=== PATIENT | male | born 1935 | race Caucasian/White ===

== ENCOUNTER 2016-09-06 05:37 | Emergency (ER) | payer MEDICARE, BC ==
[2016-09-06] MEDS ORDERED: IPRATROPIUM/ALBUTEROL 0.5-2.5 MG/3 ML AMPUL NEB ONE (06:35)
[2016-09-06] MEDS ORDERED: PREDNISONE 20 MG TABLET PO ONE (06:35)
[2016-09-06] MEDS ORDERED: ALBUTEROL SULFATE 0.083% NEB 2.5 MG/3 ML AMPUL NEB SCH (06:50)
--- NOTE | 2016-09-06 06:58 | ER Document Report ---
ED Respiratory Problem - General Mode of Arrival: Ambulatory Information source: Patient, Relative TRAVEL OUTSIDE OF THE [place] IN LAST 30 DAYS: No - HPI Patient complains to provider of: Cough Onset: Other - 4 days Associated symptoms: Other - See above <VINOD ESCUDERO - Last Filed: 09/06/16 07:20> <HARRIS DUMONT - Last Filed: 09/06/16 09:51> - General Chief Complaint: Cough Stated Complaint: COUGH Notes: Patient is an 81 year old male, with a past medical history including CAD and diabetes, who presents to the emergency department with his daughter complaining of a cough onset 4 days ago. Per daughter patient's cough is non productive, she didn't realize he had an inhaler to use until this morning so he has not been using an inhaler at home. Patient had refused to go to his PCP for the worsening cough and so daughter brought him to the ED. (VINOD ESCUDERO) - Related Data Allergies/Adverse Reactions: No Known Allergies Allergy (Unverified 09/06/16 05:57) Past Medical History - General Information source: Patient - Social History Smoking Status: Former Smoker - 1 yr Frequency of alcohol use: Occasional Family History: Reviewed & Not Pertinent Patient has suicidal ideation: No Patient has homicidal ideation: No - Past Medical History Cardiac Medical History: Reports: Hx Coronary Artery Disease, Hx Hypertension Endocrine Medical History: Reports: Hx Diabetes Mellitus Type 2 Past Surgical History: Reports: Hx Coronary Artery Bypass Graft <VINOD ESCUDERO - Last Filed: 09/06/16 07:20> Review of Systems - Review of Systems Constitutional: No symptoms reported EENT: No symptoms reported Cardiovascular: No symptoms reported Respiratory: See HPI, Cough Gastrointestinal: No symptoms reported Genitourinary: No symptoms reported Male Genitourinary: No symptoms reported Musculoskeletal: No symptoms reported Skin: No symptoms reported Hematologic/Lymphatic: No symptoms reported Neurological/Psychological: No symptoms reported -: Yes All other systems reviewed and negative <VINOD ESCUDERO - Last Filed: 09/06/16 07:20> Physical Exam - Vital signs Interpretation: Normal - General General appearance: Appears well, Alert - HEENT Head: Normocephalic, Atraumatic Nasal: Other - mild congestion Neck: No: Carotid bruit - Respiratory Respiratory status: No respiratory distress Chest status: Nontender Breath sounds: Wheezing - Diffuse Chest palpation: Normal - Cardiovascular Rhythm: Regular Heart sounds: Normal auscultation Murmur: No - Abdominal Inspection: Normal Distension: No distension Bowel sounds: Normal Tenderness: Nontender Organomegaly: No organomegaly - Back Back: Normal, Nontender - Extremities General upper extremity: Normal inspection, Normal ROM, Normal strength General lower extremity: Normal inspection, Normal ROM, Normal strength - Neurological Neuro grossly intact: Yes Cognition: Normal Orientation: AAOx4 [place] Coma Scale Eye Opening: Spontaneous [place] Coma Scale Verbal: Oriented [place] Coma Scale Motor: Obeys Commands [place] Coma Scale Total: 15 Speech: Normal Motor strength normal: LUE, RUE, LLE, RLE - Psychological Associated symptoms: Normal affect, Normal mood - Skin Skin Temperature: Warm Skin Moisture: Dry Skin Color: Normal <VINOD ESCUDERO - Last Filed: 09/06/16 07:20> Course - Laboratory Result Diagrams: 09/06/16 07:05 09/06/16 07:05 <VINOD ESCUDERO - Last Filed: 09/06/16 07:20> - Laboratory Result Diagrams: 09/06/16 07:05 09/06/16 07:05 - EKG Interpretation by Ks EKG shows normal: Sinus rhythm, [place], Intervals, ST-T Waves. abnormal: QRS Complexes - Old inferior wall AK, borderline R-wave progression in the anterior leads Rate: Tachycardia - 105 [place]/QRS: IVCD <HARRIS DUMONT - Last Filed: 09/06/16 09:51> - Re-evaluation Re-evalutation: 09/06/16 09:45 The patient's wheezing has mostly cleared up with the breathing treatments. He continues to have a dry nonproductive cough. He does have an albuterol inhaler but is almost empty. He takes metformin 500 mg 3 times a day for his diabetes. I believe he will require prednisone to suppress airway inflammation to get his cough congestion and wheezing cleared up, I have explained to the patient and family member that this will cause his blood sugars to run higher and he will need to be drinking plenty of fluids. The daughter inquired about a Z-Adeel for him, I explained to her why antibiotics and put at this point is clearly a viral rest were infection are not a good idea and potential side effects such as C. difficile colitis for antibiotic use , bacterial resistance from inappropriate antibiotic use, and other reactions while there is no benefit to be expected. (HARRIS DUMONT) - Vital Signs Vital signs: Temp Pulse Resp BP Pulse Ox 98.4 F 94 20 121/94 H 94 09/06/16 05:47 09/06/16 05:47 09/06/16 09:13 09/06/16 05:47 09/06/16 09:13 (VINOD ESCUDERO) (HARRIS DUMONT) - Laboratory Laboratory results interpreted by me: 09/06/16 09/06/16 07:05 07:05 RBC 3.95 L Hgb 12.1 L Hct 36.7 L RDW 14.6 H Seg Neutrophils % 80.4 H Lymphocytes % 9.3 L Sodium 136.0 L Glucose 157 H Creatine Kinase 39 L (HARRIS DUMONT) Discharge <VINOD ESCUDERO - Last Filed: 09/06/16 07:20> <HARRIS DUMONT - Last Filed: 09/06/16 09:51> - Discharge Clinical Impression: Bronchitis, acute, with bronchospasm, Viral URI Condition: Stable Disposition: HOME, SELF-CARE Additional Instructions: Bronchitis with Bronchospasm (Wheezing): You have bronchitis with bronchospasm (wheezing). Sometimes people develop wheezing with a chest cold. This occurs either because of an underlying tendency toward asthma or because the virus itself irritates the bronchial tubes. This irritation causes cough, shortness of breath, and wheezing. Emergency treatment of bronchospasm may include adrenaline shots or bronchodilator aerosol. You may feel lightheaded and have a rapid pulse for an hour or two. Rest and get plenty of fluids. At home, we'll treat you with a bronchodilator inhaler. Corticosteroids may be required for some patients. Until you recover, avoid chemical fumes, dusts, pollens, and exercising in very cold or dry air. If you smoke, stop now! Most cases of bronchitis get better without antibiotics. We prescribe antibiotics when we believe bacteria are damaging your airways, or if there's high risk the bronchitis will worsen into pneumonia. Increase your fluid intake. A cool mist humidifier may make your lungs more comfortable. An expectorant (cough medicine that loosens phlegm) can help. Repeated episodes of bronchitis and bronchospasm may result in lung damage -- for example, chronic bronchitis, recurrent pneumonias, or emphysema. If you develop a fever, increased wheezing, chest pain, or severe shortness of breath, you should contact the doctor immediately. START THE PREDNISONE TOMORROW. USE THE INHALER 2 PUFFS EVERY 4 HOURS FOR WHEEZING NEEDED. DRINK PLENTY OF WATER. THE PREDNISONE WILL MAKE YOUR BLOOD SUGARS GO HIGHER. GET PLENTY OF REST. FOLLOW UP WITH A LOCAL MEDICAL DOCTOR FOR RECHECK AND ONGOING MEDICAL CARE. RETURN TO THE EMERGENCY ROOM IF ANY NEW OR WORSENING SYMPTOMS. Prescriptions: Albuterol Sulfate [Proair HFA] 1 - 2 puff IH Q4 PRN #1 inhaler PRN Reason: Prednisone [Deltasone 10 mg Tablet] 10 mg PO ASDIR PRN #15 tablet PRN Reason: Scribe Attestation: 09/06/16 09:51 I personally performed the services described in the documentation, reviewed and edited the documentation which was dictated to the scribe in my presence, and it accurately records my words and actions. (HARRIS DUMONT) Scribe Documentation - Scribe Written by John:: john Hedrick, 09/06/16, 0720 acting as scribe for :: Cayden <VINOD ESCUDERO - Last Filed: 09/06/16 07:20>
[2016-09-06 07:25] LABS: ABSOLUTE EOSINOPHILS # (AUTO) 0.1 10^3/uL (0.0-0.6); ABSOLUTE LYMPHOCYTES (AUTO) 0.8 10^3/uL (0.5-4.7); ABSOLUTE MONOCYTES (AUTO) 0.7 10^3/uL (0.1-1.4); ABSOLUTE NEUT (AUTO) 6.5 10^3/uL (1.7-8.2); BASOPHILS % (AUTO) 0.5 % (0-2); EOSINOPHILS % (AUTO) 1.4 % (0-6); HEMATOCRIT 36.7 % (37.9-51.0); HEMOGLOBIN 12.1 g/dL (13.5-17.0); HGB HCT DIFFERENCE -0.4; LYMPHOCYTES % (AUTO) 9.3 % (13-45); MEAN CORPUSCULAR HEMOGLOBIN 30.6 pg (27.0-33.4); MEAN CORPUSCULAR VOLUME 93 fl (80-97); MONOCYTES % (AUTO) 8.4 % (3-13); RED BLOOD COUNT 3.95 10^6/uL (4.35-5.55); RED CELL DISTRIBUTION WIDTH 14.6 % (11.5-14.0); SEGMENTED NEUTROPHILS % (AUTO) 80.4 % (42-78); WHITE BLOOD COUNT 8.1 10^3/uL (4.0-10.5)
[2016-09-06] MEDS ORDERED: ALBUTEROL SULFATE 0.083% NEB 2.5 MG/3 ML AMPUL NEB ONE ×2 (07:34→08:32)
[2016-09-06 07:49] LABS: ALANINE AMINOTRANSFERASE 21 U/L (21-72); ALBUMIN 3.6 g/dL (3.5-5.0); ALKALINE PHOSPHATASE 123 U/L (38-126); ANION GAP 12 (5-19); ASPARTATE AMINO TRANSFERASE 21 U/L (17-59); BILIRUBIN,TOTAL 0.8 mg/dL (0.2-1.3); BLOOD UREA NITROGEN 12 mg/dL (7-20); CARBON DIOXIDE 24 mmol/L (22-30); CHLORIDE 100 mmol/L (98-107); CREATINE KINASE 39 U/L (55-170); CREATININE RESULT 0.94 mg/dL (0.52-1.25); GLUCOSE 157 mg/dL (75-110); POTASSIUM 4.5 mmol/L (3.6-5.0); TOTAL PROTEIN 6.3 g/dL (6.3-8.2)
[2016-09-06 08:01] LABS: CREATINE KINASE MB 0.43 ng/mL (<4.55); TROPONIN I < 0.012 ng/mL
[2016-09-06 09:52] LABS: APPEARANCE,URINE CLEAR; BILIRUBIN,URINE NEGATIVE (NEGATIVE); GLUCOSE, URINE NEGATIVE (NEGATIVE); KETONES,URINE TRACE mg/dL (NEGATIVE); LEUKOCYTE ESTERASE,URINE NEGATIVE (NEGATIVE); NITRITE,URINE NEGATIVE (NEGATIVE); PROTEIN,URINE NEGATIVE (NEGATIVE); URINE SPECIFIC GRAVITY 1.019; UROBILINOGEN,URINE NEGATIVE mg/dL (<2.0)
--- NOTE | 2016-09-06 10:04 | EKG REPORT ---
SEVERITY:- ABNORMAL ECG - SINUS TACHYCARDIA NONSPECIFIC INTRAVENTRICULAR CONDUCTION DELAY PROBABLE INFERIOR INFARCT, AGE INDETERMINATE BORDERLINE R WAVE PROGRESSION, ANTERIOR LEADS : Confirmed by: Manuel Garcia MD 06-Sep-2016 10:03:50
[2016-09-06 10:22] VITALS: BP 114/62
== END 2016-09-06 10:22 | disposition home or self-care (01) ==
LOC: ER 05:37
DX: J20.9 Acute bronchitis, unspecified (principal); J06.9 Acute upper respiratory infection, unspecified; B97.89 Other viral agents as the cause of diseases classified elsewhere; R09.81 Nasal congestion; R05 Cough; R06.2 Wheezing; R00.0 Tachycardia, unspecified; I25.10 Atherosclerotic heart disease of native coronary artery without angina pectoris; E11.9 Type 2 diabetes mellitus without complications; I25.2 Old myocardial infarction; I10 Essential (primary) hypertension; Z95.1 Presence of aortocoronary bypass graft; Z87.891 Personal history of nicotine dependence; Z79.84 Long term (current) use of oral hypoglycemic drugs
CPT/HCPCS: 93005; 94640 ×2; 99284; 36415; 82553; 82550; 85025; 80053; 81001; 84484; 83880; 71020; 93010; A9270 ×3; J7512; J7620

== ENCOUNTER 2017-10-24 20:58 | Observation (INO) | payer BC, MEDICARE, OTHER ==
[2017-10-24 21:21] LABS: ABSOLUTE EOSINOPHILS # (AUTO) 0.4 10^3/uL (0.0-0.6); ABSOLUTE LYMPHOCYTES (AUTO) 1.4 10^3/uL (0.5-4.7); ABSOLUTE MONOCYTES (AUTO) 0.6 10^3/uL (0.1-1.4); ABSOLUTE NEUT (AUTO) 4.8 10^3/uL (1.7-8.2); BASOPHILS % (AUTO) 0.6 % (0-2); EOSINOPHILS % (AUTO) 5.6 % (0-6); HEMOGLOBIN 12.9 g/dL (13.5-17.0); LYMPHOCYTES % (AUTO) 20.1 % (13-45); MEAN CORPUSCULAR HEMOGLOBIN 30.2 pg (27.0-33.4); MEAN CORPUSCULAR VOLUME 92 fl (80-97); MONOCYTES % (AUTO) 7.8 % (3-13); PLATELET COUNT 270 10^3/uL (150-450); RED BLOOD COUNT 4.26 10^6/uL (4.35-5.55); RED CELL DISTRIBUTION WIDTH 14.4 % (11.5-14.0); SEGMENTED NEUTROPHILS % (AUTO) 65.9 % (42-78); TOTAL CELLS COUNTED % (AUTO) 100 %; WHITE BLOOD COUNT 7.2 10^3/uL (4.0-10.5)
--- NOTE | 2017-10-24 21:24 | RADIOLOGY REPORT (SQ) ---
EXAM DESCRIPTION: CT HEAD WITHOUT COMPLETED DATE/TIME: 10/24/2017 9:04 pm REASON FOR STUDY: strokes/s COMPARISON: None. TECHNIQUE: Axial images acquired through the brain without intravenous contrast. Images reviewed wi th bone, brain and subdural windows. Images stored on PACS. All CT scanners at this facility use dose modulation, iterative reconstruction, and/or weight based d osing when appropriate to reduce radiation dose to as low as reasonably achievable (ALARA). [facility]: Dose Right [facility]: CareDose [facility]: Dose Right [facility]: Teradose 4D [facility]: [employer] RADIATION DOSE: CT Rad equipment meets quality standard of care and radiation dose reduction techniq ues were employed. CTDIvol: 64.6 mGy. DLP: 1292 mGy-cm. mGy. LIMITATIONS: None. FINDINGS: VENTRICLES: Normal size and contour. CEREBRUM: No masses. No hemorrhage. No midline shift. No evidence for acute infarction. Normal gra y/white matter differentiation. No areas of low density in the white matter. CEREBELLUM: No masses. No hemorrhage. No alteration of density. No evidence for acute infarction. EXTRAAXIAL SPACES: No fluid collections. No masses. ORBITS AND GLOBE: No intra- or extraconal masses. Normal contour of globe without masses. CALVARIUM: No fracture. PARANASAL SINUSES: No fluid or mucosal thickening. SOFT TISSUES: No mass or hematoma. OTHER: No other significant finding. IMPRESSION: NORMAL BRAIN CT WITHOUT CONTRAST. Pertinent positive or negative findings of the imaging study reported as a CRITICAL EXAM to ER TAMI PAYAL at21:18 on 10/24/2017. Category of Critical Exam: Stroke alert EVIDENCE OF ACUTE STROKE: NO. COMMENT: Quality ID # [id number]: Final reports with documentation of one or more dose reduction techniques (e.g., Automated exposure control, adjustment of the mA and/or kV according to patient size, use of iterative reconstruction technique) TECHNICAL DOCUMENTATION: JOB ID: [id number] [employer]- All Rights Reserved Reading location - IP/workstation name: [email or web address]
[2017-10-24 21:28] LABS: PARTIAL THROMBOPLASTIN TIME 33.8 SEC (23.5-35.8)
[2017-10-24 21:31] LABS: INTERNATIONAL RATION (INR) 0.95; PROTHROMBIN TIME 13.4 SEC (11.4-15.4)
--- NOTE | 2017-10-24 21:31 | RADIOLOGY REPORT (SQ) ---
EXAM DESCRIPTION: CHEST SINGLE VIEW COMPLETED DATE/TIME: 10/24/2017 9:09 pm REASON FOR STUDY: strokes/s COMPARISON: 09/06/2016. NUMBER OF VIEWS: One view. TECHNIQUE: Single frontal radiographic view of the chest acquired. LIMITATIONS: None. FINDINGS: LUNGS AND PLEURA: Low lung volumes. Chronic left basilar scar suspected. No new infiltra julissa. No evidence of overt failure. MEDIASTINUM AND HILAR STRUCTURES: Stable postoperative contours. Status post CABG with grossly intac t sternal wires. HEART AND VASCULAR STRUCTURES: Heart normal in size. Normal vasculature. BONES: No acute findings. HARDWARE: None in the chest. OTHER: No other significant finding. IMPRESSION: Stable chest. No acute cardiopulmonary disease appreciated. TECHNICAL DOCUMENTATION: JOB ID: [id number] [employer]- All Rights Reserved Reading location - IP/workstation name: [email or web address]
[2017-10-24] MEDS ORDERED: CLOPIDOGREL BISULFATE 300 MG TABLET PO ONE (21:32)
[2017-10-24 21:42] LABS: ALANINE AMINOTRANSFERASE 29 U/L (21-72); ALBUMIN 4.4 g/dL (3.5-5.0); ALKALINE PHOSPHATASE 88 U/L (38-126); ANION GAP 15 (5-19); ASPARTATE AMINO TRANSFERASE 26 U/L (17-59); BILIRUBIN,DIRECT 0.4 mg/dL (0.0-0.4); BILIRUBIN,TOTAL 0.5 mg/dL (0.2-1.3); BLOOD UREA NITROGEN 25 mg/dL (7-20); CALCIUM 9.7 mg/dL (8.4-10.2); CARBON DIOXIDE 26 mmol/L (22-30); CHLORIDE 102 mmol/L (98-107); CREATINE KINASE 23 U/L (55-170); GLUCOSE 73 mg/dL (75-110); POTASSIUM 4.6 mmol/L (3.6-5.0); SODIUM 142.6 mmol/L (137-145); TOTAL PROTEIN 7.3 g/dL (6.3-8.2)
--- NOTE | 2017-10-24 21:42 | ER Document Report ---
ED General - General Chief Complaint: S/S of Possible Stroke Stated Complaint: POSSIBLE STROKE Time Seen by Provider: 10/24/17 21:12 Notes: Patient is an 82-year-old male with a past medical history of non-insulin- dependent diabetes, hyperlipidemia, coronary artery disease who presents with a 30 minute episode prior to arrival of expressive aphasia as well as right-sided facial droop. The daughter at the bedside reports that when she went into the patient's bedroom to estimate he wanted dinner she noted that he was sitting up on the side of the bed. When she spoke to him she states that he replied with unintelligible, garbled speech. She states she could not make of the words that he was saying. She states she immediately went to look at his face and noticed that he had a slight right-sided facial droop. She states that he was unable to tell her his name, his location and seemed very confused but also had quite garbled speech. She states that at the time the paramedics arrived his symptoms were improving and his speech was clearing. At time of presentation patient is now asymptomatic, states he feels well, denies any complaints. He denies anything triggering his symptoms. Nothing seemed to improve or worsen the symptoms were present. He has no history of similar symptoms in the past. No history of strokes in the past. He takes aspirin daily but no additional anticoagulation or antiplatelet agents. No recent localizing infectious symptoms or head trauma. TRAVEL OUTSIDE OF THE [place] IN LAST 30 DAYS: No - Related Data Allergies/Adverse Reactions: No Known Allergies Allergy (Unverified 09/06/16 05:57) Past Medical History - General Information source: Patient, Relative - Social History Smoking Status: Never Smoker Frequency of alcohol use: None Drug Abuse: None Lives with: Family Family History: Reviewed & Not Pertinent - Past Medical History Cardiac Medical History: Reports: Hx Coronary Artery Disease, Hx Hypertension Endocrine Medical History: Reports: Hx Diabetes Mellitus Type 2 Renal/ Medical History: Denies: Hx Peritoneal Dialysis Past Surgical History: Reports: Hx Coronary Artery Bypass Graft Review of Systems - Review of Systems Notes: Constitutional: Negative for fever. HENT: Negative for sore throat. Eyes: Negative for visual changes. Cardiovascular: Negative for chest pain. Respiratory: Negative for shortness of breath. Gastrointestinal: Negative for abdominal pain, vomiting or diarrhea. Genitourinary: Negative for dysuria. Musculoskeletal: Negative for back pain. Skin: Negative for rash. Neurological: Negative for headaches, weakness or numbness. 10 point ROS negative except as marked above and in HPI. Physical Exam - Vital signs Vitals: Pulse Ox 98 10/24/17 21:16 Interpretation: Hypertensive Notes: PHYSICAL EXAMINATION: GENERAL: Well-appearing, well-nourished and in no acute distress. HEAD: Atraumatic, normocephalic. EYES: Pupils equal round and reactive to light, extraocular movements intact, sclera anicteric, conjunctiva are normal. ENT: nares patent, oropharynx clear without exudates. Moist mucous membranes. NECK: Normal range of motion, supple without lymphadenopathy LUNGS: Breath sounds clear to auscultation bilaterally and equal. No wheezes rales or rhonchi. HEART: Regular rate and rhythm without murmurs ABDOMEN: Soft, nontender, normoactive bowel sounds. No guarding, no rebound. No masses appreciated. EXTREMITIES: Normal range of motion, no pitting or edema. No cyanosis. NEUROLOGICAL: Face symmetric. Tongue protrudes midline. Extraocular motions intact. Pupils are 2 mm and equally reactive. Normal speech, normal gait. 5 out of 5 strength in both the distal and proximal upper and lower extremities bilaterally. Sensation is grossly intact throughout. Finger to nose testing normal. Pronator drift normal. PSYCH: Normal mood, normal affect. SKIN: Warm, Dry, normal turgor, no rashes or lesions noted. Course - Re-evaluation Re-evalutation: 10/24/17 21:39 Patient presents with signs and symptoms most consistent with an acute TIA that has now resolved. The patient had a right-sided facial droop as well as expressive aphasia all of which have completely resolved. Symptoms apparently lasted for approximately 30 minutes. The patient is diabetic, advanced in age and does arrive quite hypertensive. ABCD 2 score is 5 placed and the patient had a 7% risk for an acute stroke within the next 7 days. Given this elevated risk I am not comfortable with discharge nor is the patient and his family. I have discussed with Dr. Turpin who will admit this patient. I have ordered carotid Doppler studies here in the emergency department as well as loaded the patient with clopidogrel 300 mg. He does already take aspirin. Current NIH stroke scale is 0, the patient has no signs or symptoms to suggest an active stroke or indication for TPA. The remainder of his laboratories are otherwise unremarkable. - Vital Signs Vital signs: Temp Pulse Resp BP Pulse Ox 97.9 F 61 16 143/75 H 96 10/24/17 23:49 10/25/17 02:00 10/25/17 00:00 10/25/17 00:00 10/25/17 00:00 - Laboratory Result Diagrams: 10/24/17 21:13 10/24/17 21:13 Laboratory results interpreted by me: 10/24/17 10/24/17 21:13 21:13 RBC 4.26 L Hgb 12.9 L RDW 14.4 H BUN 25 H Glucose 73 L Creatine Kinase 23 L - Diagnostic Test Radiology reviewed: Image reviewed, Reports reviewed Radiology results interpreted by me: 10/24/17 21:40 CT head: No acute intracranial bleed Chest x-ray: No acute infiltrate or pneumothorax Discharge - Discharge Clinical Impression: TIA (transient ischemic attack) Qualifiers: Transient cerebral ischemia type: unspecified Qualified Code(s): G45.9 - Transient cerebral ischemic attack, unspecified Hypertension Qualifiers: Hypertension type: unspecified Qualified Code(s): I10 - Essential (primary) hypertension Diabetes Qualifiers: Diabetes mellitus type: type 2 Diabetes mellitus superintendent container terminal insulin use: without superintendent container terminal use Diabetes mellitus complication status: with unspecified complications Qualified Code(s): E11.8 - Type 2 diabetes mellitus with unspecified complications Condition: Fair Disposition: ADMITTED INPATIENT Admitting Provider: Lauryn Burnett Unit Admitted: Telemetry
--- NOTE | 2017-10-24 21:45 | EKG REPORT ---
SEVERITY:- ABNORMAL ECG - SINUS RHYTHM PROBABLE INFERIOR INFARCT, AGE INDETERMINATE ABNRM R PROG, CONSIDER ASMI OR LEAD PLACEMENT NONSPECIFIC ST-T CHANGES LATERAL CHEST LEADS : Confirmed by: Nj Naik 24-Oct-2017 21:45:11
[2017-10-24 21:54] LABS: CREATINE KINASE MB 0.68 ng/mL (<4.55)
[2017-10-24 21:55] LABS: TROPONIN I < 0.012 ng/mL
[2017-10-24] MEDS ORDERED: ONDANSETRON HCL INJ/PF 4 MG/2 ML SDV IV PRN (22:11)
[2017-10-24] MEDS ORDERED: ACETAMINOPHEN 325 MG TABLET PO PRN (22:11)
[2017-10-24] MEDS ORDERED: DOCUSATE SODIUM 100 MG CAPSULE PO PRN (22:11)
[2017-10-24] MEDS ORDERED: GLUCAGON,HUMAN RECOMB 1 MG INJ IM PRN (23:45)
[2017-10-24] MEDS ORDERED: INSULIN LISPRO 100 UNIT/ML 3 ML VIAL SUBCUT PRN (23:45)
[2017-10-24] MEDS ORDERED: DEXTROSE 40% GEL 15 GM TUBE PO PRN ×2 (23:45)
[2017-10-24] MEDS ORDERED: DEXTROSE 50%-WATER 25 GM/50 ML DISP.SYRIN IV PRN ×2 (23:45)
[2017-10-25 01:15] LABS: APPEARANCE,URINE CLEAR; BILIRUBIN,URINE NEGATIVE (NEGATIVE); COLOR,URINE YELLOW; GLUCOSE, URINE 50 mg/dL (NEGATIVE); KETONES,URINE NEGATIVE (NEGATIVE); LEUKOCYTE ESTERASE,URINE NEGATIVE (NEGATIVE); NITRITE,URINE NEGATIVE (NEGATIVE); PROTEIN,URINE NEGATIVE (NEGATIVE); URINE SPECIFIC GRAVITY 1.023; UROBILINOGEN,URINE NEGATIVE mg/dL (<2.0)
--- NOTE | 2017-10-25 02:32 | PDOC H&P ---
History of Present Illness Admission Date/PCP: 10/24/17 21:50 CATHLEEN HUSSEIN MD Patient complains of: Garbled speech and right facial droop around 8 PM per daughter. History of Present Illness: CRISTELA WOODS is a 82 year old male with with history of CAD (post CABG 3), prostate cancer (post prostatectomy and radiation therapy), hypertension, hyperlipidemia and type 2 diabetes mellitus was admitted with above-mentioned complaints. Most of the history was obtained from his daughter at bedside since the patient does not recall the event. According to his daughter, so she checked on him around 8 PM to ask him if he wanted to eat pizza. The patient was sitting at edge of the bed and seemed to have difficulty expressing himself. He also was disoriented to place and time. And she noticed a right facial droop. Up if she called 911 but by the time they got there his symptoms resolved. As she thought that it lasted about 10- 15 minutes. There was no report of any fever, chills, loss of consciousness, focal weakness or numbness, seizure activity or any postictal state. The patient apparently has been having dizzy spells for the last 4 days since his blood sugar seems to be elevated at about 400. He denied any lightheadedness or vertigo, blurred vision or dyspnea or dysphagia. He is on baby aspirin daily. Of note, the patient and the patient's daughter mentioned that he had upper airway symptoms a couple weeks ago as so if she took him to his PCP. However, since the patient also complained of feeling dizzy and his blood sugar was not controlled and the focus of the visit was more on most 2 words to controlling his blood sugar rather than starting him on any antibiotics. The patient denies any chest pain, shortness of breath but he said that he has intermittent cough with some sputum of grayish color. He denies any sick contact or any abdominal pain. He has chronic diarrhea (possibly secondary to metformin), no constipation and no urinary symptoms. He he usually walks independently but staggers sometimes. In the ED, his temperature was 98.3, heart rate 73, respiratory rate 20, blood pressure 167/68 with oxygen saturation of 9 5% on room air. His NIH SS score was 0. He had a CAT scan was done which was negative for any acute findings. He received 300 mg Plavix 1. Past Medical History Cardiac Medical History: Reports: Coronary Artery Disease - post CABG x3, Hyperlipidema, Hypertension Endocrine Medical History: Reports: Diabetes Mellitus Type 2 Malignancy Medical History: Reports: Other - Prostate cancer post prostatectomy/ XRT. Past Surgical History Past Surgical History: Reports: Coronary Artery Bypass Graft - post CABG x3, Orthopedic Surgery - Right knee surgery. Right lower extremity fracture per daughter., Other - post prostatectomy Social History Smoking Status: Former Smoker Cigarettes Packs Per Day: 0 - To smoke less than a pack a day for the last 60 years. He quit 7-8 years ago Frequency of Alcohol Use: Occasional Hx Recreational Drug Use: No - Advance Directive Resuscitation Status: Full Code Family History Family History: Reviewed & Not Pertinent Parental Family History Reviewed: Yes - Mother: CAD, 2 sisters had cancer. Brother: Prostate cancer. Children Family History Reviewed: No Sibling(s) Family History Reviewed.: Yes Medication/Allergy Home Medications: Atorvastatin Calcium 20 mg PO QAM 10/24/17 Cilostazol [Pletal 100 Mg Tablet] 100 mg PO BID 10/24/17 Losartan Potassium 25 mg PO QAM 10/24/17 Metformin HCl 500 mg PO TID 10/24/17 Allergies/Adverse Reactions: No Known Allergies Allergy (Unverified 09/06/16 05:57) Review of Systems ROS unobtainable: Other - Pertinent positives and negatives as detailed in the HPI. Physical Exam Vital Signs: Temp Pulse Resp BP Pulse Ox 98.3 F 73 20 167/68 H 99 10/24/17 21:18 10/24/17 21:18 10/24/17 21:18 10/24/17 21:18 10/24/17 21:20 General appearance: PRESENT: no acute distress, well-developed Head exam: PRESENT: atraumatic, normocephalic Eye exam: PRESENT: conjunctiva pink, PERRLA. ABSENT: scleral icterus Mouth exam: PRESENT: moist, neck supple Neck exam: PRESENT: full ROM. ABSENT: JVD Respiratory exam: PRESENT: clear to auscultation cindy. ABSENT: rales, rhonchi, wheezes Cardiovascular exam: PRESENT: RRR, +S1, +S2 Pulses: PRESENT: normal dorsalis pedis pul GI/Abdominal exam: PRESENT: normal bowel sounds, soft. ABSENT: distended, rebound, tenderness Rectal exam: PRESENT: deferred Musculoskeletal exam: PRESENT: full ROM Neurological exam: PRESENT: alert, altered, awake, oriented to person, oriented to place, oriented to time, oriented to situation, CN II-XII grossly intact - except VIII., other - No babinskin or clonus. Gait was not assessed.. ABSENT: motor sensory deficit Skin exam: PRESENT: dry, warm. ABSENT: erythema, rash Results Laboratory Results: CBC: WBC 7.2, hemoglobin 12.9, hematocrit 39.0, MCV 92, RDW 14.4, platelets 270. PT/INR 13.4/0.95. CMP: Sodium 142.6, potassium 4.6, chloride 102, bicarb 26, anion gap 15, BUN 25 , creatinine 1.02, glucose 73, liver enzymes within normal limits. Troponin 1 negative. UA: Negative. EKG Comments: Lead EKG, sinus rhythm, ventricular rate 75, [place] 0, IVCD, poor R-wave propagation. Similar when compared to previous twelve-lead EKG done on 2016. Impressions: Chest X-Ray 10/24/17 21:01 IMPRESSION: Stable chest. No acute cardiopulmonary disease appreciated. Head CT 10/24/17 21:01 IMPRESSION: NORMAL BRAIN CT WITHOUT CONTRAST. Pertinent positive or negative findings of the imaging study reported as a CRITICAL EXAM to ER PROVIDER at21:18 on 10/24/2017. Category of Critical Exam: Stroke alert EVIDENCE OF ACUTE STROKE: NO. Assessment & Plan - Diagnosis (1) TIA (transient ischemic attack) Qualifiers: Transient cerebral ischemia type: unspecified Qualified Code(s): G45.9 - Transient cerebral ischemic attack, unspecified Is this a current diagnosis for this admission?: Yes Plan: The patient's symptoms resolved prior to admission to this hospital. His NIHSS score was 0. CT scan negative for any acute findings. He received 300 mg Plavix 1 in the ED. Will order stroke workup including head MRI/MRA, neck MRA, echocardiogram, fasting lipid profile and HbA1c. We will continue ASA 325 mg daily and increase lipitor to 40 mg daily. PT consutled but no need for OT or speech therapy at this time. (2) Essential hypertension Is this a current diagnosis for this admission?: Yes Plan: Will resume his home BP medications and monitor. 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 Will check HbA1c and start Humalog sliding scale while hospitalized. Of note, the patient seems to have chronic diarrhea which could be due to metformin. (4) Hyperlipemia Is this a current diagnosis for this admission?: No Plan: Will continue Lipitor awaiting FLP. - Time Time Spent: 50 to 70 Minutes Anticipated discharge: Home
[2017-10-25] MEDS: HEPARIN SOD (PORCINE) 5,000 UNIT/ML 1 ML SYRINGE SUBCUT SCH ×3 (05:42→22:03)
[2017-10-25 07:21] LABS: HEMATOCRIT 35.3 % (37.9-51.0); HEMOGLOBIN 11.9 g/dL (13.5-17.0); MEAN CORPUSCULAR HEMOGLOBIN 30.6 pg (27.0-33.4); MEAN CORPUSCULAR HGB CONC 33.8 g/dL (32.0-36.0); MEAN CORPUSCULAR VOLUME 91 fl (80-97); PLATELET COUNT 246 10^3/uL (150-450); RED BLOOD COUNT 3.89 10^6/uL (4.35-5.55); RED CELL DISTRIBUTION WIDTH 14.3 % (11.5-14.0); WHITE BLOOD COUNT 7.3 10^3/uL (4.0-10.5)
[2017-10-25 07:35] LABS: ANION GAP 11 (5-19); BLOOD UREA NITROGEN 23 mg/dL (7-20); CALCIUM 9.4 mg/dL (8.4-10.2); CARBON DIOXIDE 23 mmol/L (22-30); CHLORIDE 103 mmol/L (98-107); CHOLESTEROL 114.88 mg/dL (0-200); GLUCOSE 119 mg/dL (75-110); POTASSIUM 4.7 mmol/L (3.6-5.0); TRIGLYCERIDES 123 mg/dL (<150)
[2017-10-25 07:46] LABS: DIRECT LDL 52 mg/dL (<100)
[2017-10-25] MEDS: FAMOTIDINE 20 MG TABLET PO SCH ×2 (10:20→22:04)
[2017-10-25] MEDS: ASPIRIN 325 MG TABLET, ENT COATED PO SCH (10:20)
[2017-10-25] MEDS: LOSARTAN POTASSIUM 25 MG TABLET PO SCH (10:20)
[2017-10-25] MEDS: CILOSTAZOL 100 MG TABLET PO SCH ×2 (10:20→18:13)
[2017-10-25] MEDS: GUAIFENESIN 600 MG TABLET.SA PO SCH ×2 (10:21→22:04)
--- NOTE | 2017-10-25 10:55 | RADIOLOGY REPORT (SQ) ---
EXAM DESCRIPTION: MRA HEAD WITHOUT COMPLETED DATE/TIME: 10/25/2017 9:20 am REASON FOR STUDY: TIA COMPARISON: None. TECHNIQUE: Axial 3-D [id number] acquisition imaging performed through the brain in the area of t he [place]. Images reformatted using 3-D MIPS. LIMITATIONS: None. FINDINGS: SOURCE IMAGES: No unexpected findings on source images. No large masses. 3-D MIP: No aneurysm. No occlusions. No significant stenosis. OTHER: No other significant finding. IMPRESSION: NORMAL MRA OF THE [place]. TECHNICAL DOCUMENTATION: JOB ID: [id number] [employer]- All Rights Reserved Reading location - IP/workstation name: [email or web address]
--- NOTE | 2017-10-25 11:03 | RADIOLOGY REPORT (SQ) ---
EXAM DESCRIPTION: MRA NECK COMBO COMPLETED DATE/TIME: 10/25/2017 9:20 am REASON FOR STUDY: TIA COMPARISON: None. TECHNIQUE: MRA of the carotid and vertebral arteries was performed using 2D and 3D [id number]-[id number]-mwtels te chniques without and with the use of gadolinium. 3-D MIPs performed at the workstation and stored on PACS. CONTRAST TYPE AND DOSE: 20 mL MultiHance RENAL FUNCTION: GFR > 60. LIMITATIONS: None. FINDINGS: GREAT VESSEL ORIGINS: Normal. No stenoses. VERTEBRAL ARTERIES: No stenoses. No evidence for aneurysm or dissection. RIGHT CAROTID SYSTEM: No significant stenosis. LEFT CAROTID SYSTEM: No significant stenosis. OTHER: No other significant finding. IMPRESSION: NORMAL MRA OF THE CAROTIDS WITH AND WITHOUT CONTRAST. COMMENT: Quality ID #[id number]: Measurements of distal internal carotid diameter were used as the denomina tor for stenosis measurement. TECHNICAL DOCUMENTATION: JOB ID: [id number] [employer]- All Rights Reserved Reading location - IP/workstation name: [email or web address]
--- NOTE | 2017-10-25 11:09 | RADIOLOGY REPORT (SQ) ---
EXAM DESCRIPTION: MRI HEAD WITHOUT COMPLETED DATE/TIME: 10/25/2017 9:20 am REASON FOR STUDY: TIA COMPARISON: Brain CT scan dated 10/24/2017 TECHNIQUE: Multiplanar imaging includes non-contrasted T1, T2, FLAIR, and diffusion with ADC map seq uences. Images stored on PACS. LIMITATIONS: None. FINDINGS: ANATOMY: No anomalies. Normal vascular flow voids. Pituitary fossa normal. CSF SPACES: Normal in size and contour. No hemorrhage. CEREBRUM: Sulci and gyri normal in size and contour. Normal white matter signal on FLAIR imaging. No evidence of hemorrhage, mass, or extraaxial fluid collection. Tiny lacunar infarct is identified in the region of the basal ganglia on the left. POSTERIOR FOSSA: No signal alteration. No hemorrhage. No edema, masses or mass effect. A small lacun ar infarct is identified in the left cerebellar hemisphere. Internal auditory canals, cerebello-pont ine angles, mastoids normal. DIFFUSION IMAGING: Negative for acute or sub-acute infarction. ORBITS: No masses. Globes normal. PARANASAL SINUSES: No fluid levels. Mucosa normal. OTHER: No other significant finding. IMPRESSION: The no acute changes. Tiny lacunar infarct is identified in the region of the basal [place] on the left and in the left cerebellar hemisphere. No other significant intracranial abnormalit ies were identified. Other findings as noted above EVIDENCE OF ACUTE STROKE: NO. TECHNICAL DOCUMENTATION: JOB ID: [id number] [employer]- All Rights Reserved Reading location - IP/workstation name: [email or web address]
--- NOTE | 2017-10-25 17:19 | PDOC PROGRESS REPORT ---
<MARIO BISHOP - Last Filed: 10/25/17 17:08> Subjective Progress Note for:: 10/25/17 Subjective:: The patient is an 82-year-old male with a past medical history of CAD, prostate cancer, hypertension, hyperlipidemia, type 2 diabetes mellitus who was admitted on 10/24/17 for TIA evaluation following a 15 minute period of garbled speech and a right facial droop that resolved spontaneously prior to EMS arrival. Since admission, he has been asymptomatic. He has seen on morning rounds with his daughter present. He is found sitting upright to the edge of the bed on room air. He denies headache, dizziness, dysphasia, aphasia, chest pain, palpitations, dyspnea and orthopnea. Per the patient's daughter, the patient is returned to his baseline. They are hopeful to be discharged home today following the echocardiogram. Reason For Visit: TIA Physical Exam Vital Signs: Temp Pulse Resp BP Pulse Ox 98.0 F 60 16 126/64 H 98 10/25/17 11:11 10/25/17 14:00 10/25/17 11:11 10/25/17 11:11 10/25/17 11:11 Intake & Output 10/24/17 10/25/17 10/26/17 06:59 06:59 06:59 Intake Total 297 400 Output Total 0 Balance 297 400 Weight 83.3 kg General appearance: PRESENT: no acute distress, well-developed, well-nourished, other - Overweight Head exam: PRESENT: atraumatic, normocephalic Eye exam: PRESENT: conjunctiva pink, EOMI, PERRLA. ABSENT: scleral icterus Ear exam: PRESENT: normal external ear exam Mouth exam: PRESENT: moist, tongue midline Neck exam: ABSENT: carotid bruit, JVD, lymphadenopathy, thyromegaly Respiratory exam: PRESENT: clear to auscultation cindy, symmetrical, unlabored. ABSENT: rales, rhonchi, wheezes Cardiovascular exam: PRESENT: RRR, +S1, +S2. ABSENT: diastolic murmur, rubs, systolic murmur Pulses: PRESENT: normal dorsalis pedis pul Vascular exam: PRESENT: normal capillary refill GI/Abdominal exam: PRESENT: normal bowel sounds, soft. ABSENT: distended, guarding, mass, organolmegaly, rebound, tenderness Rectal exam: PRESENT: deferred Extremities exam: PRESENT: full ROM. ABSENT: calf tenderness, clubbing, pedal edema Neurological exam: PRESENT: alert, awake, oriented to person, oriented to place , oriented to time, oriented to situation, CN II-XII grossly intact, other - Gait was not assessed. ABSENT: motor sensory deficit Psychiatric exam: PRESENT: appropriate affect, normal mood. ABSENT: homicidal ideation, suicidal ideation Skin exam: PRESENT: dry, intact, warm. ABSENT: cyanosis, rash Results Laboratory Results: 10/25/17 05:49 10/25/17 05:49 10/25/17 10/25/17 10/25/17 00:30 05:49 05:49 WBC 7.3 RBC 3.89 L Hgb 11.9 L Hct 35.3 L MCV 91 MCH 30.6 MCHC 33.8 RDW 14.3 H Plt Count 246 Sodium 137.0 Potassium 4.7 Chloride 103 Carbon Dioxide 23 Anion Gap 11 BUN 23 H Creatinine 0.89 Est GFR ( Amer) > 60 Est GFR (Non-Af Amer) > 60 Glucose 119 H Calcium 9.4 Triglycerides 123 Cholesterol 114.88 LDL Cholesterol Direct 52 VLDL Cholesterol 25.0 HDL Cholesterol 43 Urine Color YELLOW Urine Appearance CLEAR Urine pH 5.0 Ur Specific [place] 1.023 Urine Protein NEGATIVE Urine Glucose (UA) 50 H Urine Ketones NEGATIVE Urine Blood NEGATIVE Urine Nitrite NEGATIVE Ur Leukocyte Esterase NEGATIVE Urine WBC (Auto) 0 Urine RBC (Auto) 0 Impressions: Chest X-Ray 10/24/17 21:01 IMPRESSION: Stable chest. No acute cardiopulmonary disease appreciated. Head CT 10/24/17 21:01 IMPRESSION: NORMAL BRAIN CT WITHOUT CONTRAST. Pertinent positive or negative findings of the imaging study reported as a CRITICAL EXAM to ER PROVIDER at21:18 on 10/24/2017. Category of Critical Exam: Stroke alert EVIDENCE OF ACUTE STROKE: NO. Brain MRI with MRA 10/25/17 00:00 IMPRESSION: NORMAL MRA OF THE [place]. Head MRI 10/25/17 00:00 IMPRESSION: The no acute changes. Tiny lacunar infarct is identified in the region of the basal ganglia on the left and in the left cerebellar hemisphere. No other significant intracranial abnormalities were identified. Other findings as noted above EVIDENCE OF ACUTE STROKE: NO. Neck MRA 10/25/17 00:00 IMPRESSION: NORMAL MRA OF THE CAROTIDS WITH AND WITHOUT CONTRAST. Assessment & Plan - Diagnosis (1) TIA (transient ischemic attack) QualifierTitle: Transient cerebral ischemia type: unspecified Qualified Code(s): G45.9 - Transient cerebral ischemic attack, unspecified Is this a current diagnosis for this admission?: Yes Plan: The patient's symptoms resolved prior to EMS arrival; NIH SS score was 0. Mend scores have been 0. CT scan of the head was negative for any acute findings. MRI of the head shows an old lacunar infarct in the region of the basal ganglia on the left and in the left cerebral hemisphere; no evidence of an acute stroke. MRI of the head and neck shows normal carotids and [place] of [place]. Hemoglobin A1c is 6.4 and lipid panel is acceptable. The patient is placed on daily aspirin and Plavix therapy. Continue atorvastatin 40 mg nightly. PT consult pending. (2) Hyperlipemia Is this a current diagnosis for this admission?: Yes Plan: Continue atorvastatin 40 mg nightly. (3) Hypertension QualifierTitle: Hypertension type: unspecified Qualified Code(s): I10 - Essential (primary) hypertension Is this a current diagnosis for this admission?: Yes Plan: We will continue the patient's home medication; losartan 25 mg every morning (4) Type 2 diabetes mellitus QualifierTitle: Diabetes mellitus chcf insulin use: without terminal clerk use Diabetes mellitus complication status: without complication Qualified Code(s): E11.9 - Type 2 diabetes mellitus without complications Is this a current diagnosis for this admission?: Yes Plan: Diet controlled. The patient is placed on a consistent carb diet. Accu-Cheks before meals and at bedtime with Humalog for sliding scale coverage. - Time Time Spent with patient: 25-34 minutes Medications reviewed and adjusted accordingly: Yes Anticipated discharge: Home Within: within 24 hours <TC HATHAWAY - Last Filed: 10/25/17 17:40> Subjective Reason For Visit: TIA Physical Exam Vital Signs: Temp Pulse Resp BP Pulse Ox 98.0 F 60 16 126/64 H 98 10/25/17 11:11 10/25/17 14:00 10/25/17 11:11 10/25/17 11:11 10/25/17 11:11 Intake & Output 10/24/17 10/25/17 10/26/17 06:59 06:59 06:59 Intake Total 297 400 Output Total 0 Balance 297 400 Weight 83.3 kg Results Laboratory Results: 10/25/17 05:49 10/25/17 05:49 10/25/17 10/25/17 10/25/17 00:30 05:49 05:49 WBC 7.3 RBC 3.89 L Hgb 11.9 L Hct 35.3 L MCV 91 MCH 30.6 MCHC 33.8 RDW 14.3 H Plt Count 246 Sodium 137.0 Potassium 4.7 Chloride 103 Carbon Dioxide 23 Anion Gap 11 BUN 23 H Creatinine 0.89 Est GFR ( Amer) > 60 Est GFR (Non-Af Amer) > 60 Glucose 119 H Calcium 9.4 Triglycerides 123 Cholesterol 114.88 LDL Cholesterol Direct 52 VLDL Cholesterol 25.0 HDL Cholesterol 43 Urine Color YELLOW Urine Appearance CLEAR Urine pH 5.0 Ur Specific [place] 1.023 Urine Protein NEGATIVE Urine Glucose (UA) 50 H Urine Ketones NEGATIVE Urine Blood NEGATIVE Urine Nitrite NEGATIVE Ur Leukocyte Esterase NEGATIVE Urine WBC (Auto) 0 Urine RBC (Auto) 0 Impressions: Chest X-Ray 10/24/17 21:01 IMPRESSION: Stable chest. No acute cardiopulmonary disease appreciated. Head CT 10/24/17 21:01 IMPRESSION: NORMAL BRAIN CT WITHOUT CONTRAST. Pertinent positive or negative findings of the imaging study reported as a CRITICAL EXAM to ER PROVIDER at21:18 on 10/24/2017. Category of Critical Exam: Stroke alert EVIDENCE OF ACUTE STROKE: NO. Brain MRI with MRA 10/25/17 00:00 IMPRESSION: NORMAL MRA OF THE [place]. Head MRI 10/25/17 00:00 IMPRESSION: The no acute changes. Tiny lacunar infarct is identified in the region of the basal ganglia on the left and in the left cerebellar hemisphere. No other significant intracranial abnormalities were identified. Other findings as noted above EVIDENCE OF ACUTE STROKE: NO. Neck MRA 10/25/17 00:00 IMPRESSION: NORMAL MRA OF THE CAROTIDS WITH AND WITHOUT CONTRAST. Provider Note Provider Note: Diet is carbohydrate controlled.
[2017-10-25] MEDS ORDERED: ATORVASTATIN CALCIUM 40 MG TABLET PO SCH (22:00)
[2017-10-26] MEDS: HEPARIN SOD (PORCINE) 5,000 UNIT/ML 1 ML SYRINGE SUBCUT SCH (05:17)
[2017-10-26 05:53] LABS: ANION GAP 10 (5-19); BLOOD UREA NITROGEN 25 mg/dL (7-20); CALCIUM 9.4 mg/dL (8.4-10.2); CARBON DIOXIDE 22 mmol/L (22-30); CHLORIDE 109 mmol/L (98-107); GLUCOSE 138 mg/dL (75-110); POTASSIUM 4.4 mmol/L (3.6-5.0)
[2017-10-26 09:08] VITALS: BP 167/68
--- NOTE | 2017-10-26 09:18 | Physician Advisory Note ---
Physician Advisor ProgressNote .: Pursuant to the plan for [facility], I have reviewed the medical record for this patient. Physician Advisor Statement: Please document clinical reason(s) patient was kept a 2nd MN 3/12 PM instead of being d/c'd. Otherwise, payer will assume the patient was kept only for reasons of convenience, which they will not cover. Status: approp'ly Obs for TIA w/1MN's medical necessity clear so far. If pt had significant new clinical issue develop that required being kept longer in hospital, & it is documented, it could be possible to support Inpatient status. Call/text if ?s. Thanks! [phone]
--- NOTE | 2017-10-26 10:31 | XCELERA REPORT ---
[address] [address] Transthoracic Echocardiogram Report Name: CRISTELA WOODS Age: 82 yrs Gender: Male : 1935 Patient Status: Inpatient Patient Location: [address] [place] [address] Study Date: 10/25/2017 07:05 PM Height: 69 in Weight: 183 lb BSA: 2.0 m2 Procedure: A complete two-dimensional transthoracic echocardiogram was performed (2D, M-mode, spectral and color flow Doppler). The study was technically difficult with many images being suboptimal in quality. Reason For Study: TIA Ordering Physician: ADELA VALDEZ Performed By: Morenita Benz Interpretation Summary The left ventricular ejection fraction is within normal limits. There is borderline concentric left ventricular hypertrophy. The left ventricle is grossly normal size. Doppler measurements suggest pseudonormalized left ventricular relaxation, which is associated with grade II/IV or mild to moderate diastolic dysfunction Regional wall motion abnormalities cannot be excluded due to limited visualization. The right ventricular systolic function is normal. The left atrium is moderately dilated. The right atrium is normal in size There is a trace amount of mitral regurgitation There is no mitral valve stenosis. There is no aortic valve stenosis No aortic regurgitation is present. There is a trace or physiologic amount of tricuspid regurgitation Tricuspid regurgitation jet envelope not well defined to measure RV systolic pressure accurately. The aortic root is not well visualized. The inferior vena cava was not well visualized There is no pericardial effusion. MMode/2D Measurements & Calculations RVDd: 3.2 cm LVIDd: 4.8 cm FS: 29.9 % Ao root diam: 2.8 cm IVSd: 0.98 cm LVIDs: 3.4 cm EDV(Teich): 109.2 ml LVPWd: 1.0 cm ESV(Teich): 46.9 ml Ao root area: 6.3 cm2 EF(Teich): 57.0 % LA dimension: 4.8 cm Doppler Measurements & Calculations MV E max lenin: MV P1/2t max lenin: Ao V2 max: LV V1 max P.5 cm/sec 82.9 cm/sec 109.8 cm/sec 4.3 mmHg MV A max lenin: MV P1/2t: 68.3 msec Ao max PG: LV V1 max: 74.0 cm/sec 4.8 mmHg 104.1 cm/sec MV E/A: 1.1 MVA(P1/2t): 3.2 cm2 MV dec slope: 355.7 cm/sec2 MV dec time: 0.25 sec PA V2 max: TR max lenin: 101.7 cm/sec 238.9 cm/sec PA max PG: TR max P.8 mmHg 4.1 mmHg Left Ventricle The left ventricle is grossly normal size. There is borderline concentric left ventricular hypertrophy. The left ventricular ejection fraction is within normal limits. Doppler measurements suggest pseudonormalized left ventricular relaxation, which is associated with grade II/IV or mild to moderate diastolic dysfunction. Regional wall motion abnormalities cannot be excluded due to limited visualization. Right Ventricle The right ventricle is grossly normal size. There is normal right ventricular wall thickness. The right ventricular systolic function is normal. Atria The right atrium is normal in size. The left atrium is moderately dilated. Interarterial septum not well visualized and not well dopplered. Cannot comment on ASD/PFO presence. Mitral Valve The mitral valve is grossly normal. There is no mitral valve stenosis. There is a trace amount of mitral regurgitation. Aortic Valve The aortic valve is mildly calcified. The aortic valve is trileaflet. There is no aortic valve stenosis. No aortic regurgitation is present. Tricuspid Valve The tricuspid valve is not well visualized, but is grossly normal. There is no tricuspid stenosis. There is a trace or physiologic amount of tricuspid regurgitation. Tricuspid regurgitation jet envelope not well defined to measure RV systolic pressure accurately. Pulmonic Valve The pulmonic valve is not well visualized. Great Vessels The aortic root is not well visualized. The inferior vena cava was not well visualized. Effusions There is no pericardial effusion. : ADELA VALDEZ > Nj Naik
[2017-10-26] MEDS: ASPIRIN 325 MG TABLET, ENT COATED PO SCH (10:52)
[2017-10-26] MEDS: FAMOTIDINE 20 MG TABLET PO SCH (10:53)
[2017-10-26] MEDS: LOSARTAN POTASSIUM 25 MG TABLET PO SCH (10:53)
[2017-10-26] MEDS: CILOSTAZOL 100 MG TABLET PO SCH (10:53)
[2017-10-26] MEDS: GUAIFENESIN 600 MG TABLET.SA PO SCH (10:53)
--- NOTE | 2017-10-26 15:07 | PDOC DISCHARGE SUMMARY ---
General - Admit/Disc Date/PCP Admission Date/Primary Care Provider: 10/24/17 21:50 CATHLEEN HUSSEIN MD Discharge Date: 10/26/17 - Discharge Diagnosis (1) TIA (transient ischemic attack) Is this a current diagnosis for this admission?: Yes (2) Hyperlipemia Is this a current diagnosis for this admission?: Yes (3) Hypertension Is this a current diagnosis for this admission?: Yes (4) Type 2 diabetes mellitus Is this a current diagnosis for this admission?: Yes - Additional Information Resuscitation Status: Full Code Discharge Diet: Cardiac, Diabetic Discharge Activity: Activity As Tolerated, Balance Activity w/Rest Prescriptions: Aspirin [Ecotrin 81 mg EC Tablet] 81 mg PO DAILY #1 pkg Atorvastatin Calcium 40 mg PO QAM #30 tablet Clopidogrel Bisulfate [Plavix 75 mg Tablet] 75 mg PO DAILY #21 tablet Home Medications: Cilostazol [Pletal 100 mg Tablet] 100 mg PO BID 10/24/17 Losartan Potassium 25 mg PO QAM 10/24/17 Metformin HCl 500 mg PO TID 10/24/17 Acetaminophen [Tylenol 325 mg Tablet] 650 mg PO Q4HP PRN tablet 10/26/17 Aspirin [Ecotrin 81 mg EC Tablet] 81 mg PO DAILY #1 pkg 10/26/17 Atorvastatin Calcium 40 mg PO QAM #30 tablet 10/26/17 Clopidogrel Bisulfate [Plavix 75 mg Tablet] 75 mg PO DAILY #21 tablet 10/26/17 History of Present Illness History of Present Illness: Per H&P by Dr. Burnett: CRISTELA WOODS is a 82 year old male with with history of CAD (post CABG 3), prostate cancer (post prostatectomy and radiation therapy), hypertension, hyperlipidemia and type 2 diabetes mellitus was admitted with above-mentioned complaints. Most of the history was obtained from his daughter at bedside since the patient does not recall the event. According to his daughter, so she checked on him around 8 PM to ask him if he wanted to eat pizza. The patient was sitting at edge of the bed and seemed to have difficulty expressing himself. He also was disoriented to place and time. And she noticed a right facial droop. Up if she called 911 but by the time they got there his symptoms resolved. As she thought that it lasted about 10- 15 minutes. There was no report of any fever, chills, loss of consciousness, focal weakness or numbness, seizure activity or any postictal state. The patient apparently has been having dizzy spells for the last 4 days since his blood sugar seems to be elevated at about 400. He denied any lightheadedness or vertigo, blurred vision or dyspnea or dysphagia. He is on baby aspirin daily. Of note, the patient and the patient's daughter mentioned that he had upper airway symptoms a couple weeks ago as so if she took him to his PCP. However, since the patient also complained of feeling dizzy and his blood sugar was not controlled and the focus of the visit was more on most 2 words to controlling his blood sugar rather than starting him on any antibiotics. The patient denies any chest pain, shortness of breath but he said that he has intermittent cough with some sputum of grayish color. He denies any sick contact or any abdominal pain. He has chronic diarrhea (possibly secondary to metformin), no constipation and no urinary symptoms. He he usually walks independently but staggers sometimes. In the ED, his temperature was 98.3, heart rate 73, respiratory rate 20, blood pressure 167/68 with oxygen saturation of 9 5% on room air. His NIH SS score was 0. He had a CAT scan was done which was negative for any acute findings. He received 300 mg Plavix 1. Hospital Course Hospital Course: The patient was admitted for TIA; patient's family member reported approximately 10-15 minutes of right facial droop and incomprehensible speech that resolved spontaneously prior to EMS arrival. Evaluation included a head CT which was negative for any acute findings. 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 MRA of the head and neck showed normal carotids and [place]. Echocardiogram demonstrated a normal left ventricular ejection fraction, mild to moderate diastolic dysfunction, trace mitral regurgitation, and trace tricuspid regurgitation. A1c was evaluated at 6.4% in the lipid panel was acceptable. The patient was placed on daily aspirin, Plavix therapy, and atorvastatin. Risk modification was discussed in detail with the patient and family members. At time of discharge, the patient is in stable condition. He is discharged to home and provided prescriptions for aspirin, Plavix, and atorvastatin. He is recommended to follow-up with his primary care provider within 1-2 weeks. Physical Exam Vital Signs: Temp Pulse Resp BP Pulse Ox 98.0 F 56 L 16 167/68 H 97 10/26/17 09:06 10/26/17 09:06 10/26/17 09:06 10/26/17 09:06 10/26/17 09:06 Intake & Output 10/25/17 10/26/17 10/27/17 06:59 06:59 06:59 Intake Total 297 1328 Output Total 0 Balance 297 1328 Weight 83.3 kg General appearance: PRESENT: no acute distress, well-developed, well-nourished, other - Overweight Head exam: PRESENT: atraumatic, normocephalic Eye exam: PRESENT: conjunctiva pink, EOMI, PERRLA. ABSENT: scleral icterus Ear exam: PRESENT: normal external ear exam Mouth exam: PRESENT: moist, tongue midline Neck exam: ABSENT: carotid bruit, JVD, lymphadenopathy, thyromegaly Respiratory exam: PRESENT: clear to auscultation cindy, symmetrical, unlabored. ABSENT: rales, rhonchi, wheezes Cardiovascular exam: PRESENT: RRR, +S1, +S2. ABSENT: diastolic murmur, rubs, systolic murmur Pulses: PRESENT: normal dorsalis pedis pul Vascular exam: PRESENT: normal capillary refill GI/Abdominal exam: PRESENT: normal bowel sounds, soft. ABSENT: distended, guarding, mass, organolmegaly, rebound, tenderness Rectal exam: PRESENT: deferred Extremities exam: PRESENT: full ROM. ABSENT: calf tenderness, clubbing, pedal edema Neurological exam: PRESENT: alert, awake, oriented to person, oriented to place , oriented to time, oriented to situation, CN II-XII grossly intact. ABSENT: motor sensory deficit Psychiatric exam: PRESENT: appropriate affect, normal mood. ABSENT: homicidal ideation, suicidal ideation Skin exam: PRESENT: dry, intact, warm. ABSENT: cyanosis, rash Results Laboratory Results: 10/25/17 05:49 10/26/17 05:11 10/26/17 05:11 Sodium 141.0 Potassium 4.4 Chloride 109 H Carbon Dioxide 22 Anion Gap 10 BUN 25 H Creatinine 0.87 Est GFR ( Amer) > 60 Est GFR (Non-Af Amer) > 60 Glucose 138 H Calcium 9.4 Impressions: Chest X-Ray 10/24/17 21:01 IMPRESSION: Stable chest. No acute cardiopulmonary disease appreciated. Head CT 10/24/17 21:01 IMPRESSION: NORMAL BRAIN CT WITHOUT CONTRAST. Pertinent positive or negative findings of the imaging study reported as a CRITICAL EXAM to ER PROVIDER at21:18 on 10/24/2017. Category of Critical Exam: Stroke alert EVIDENCE OF ACUTE STROKE: NO. Brain MRI with MRA 10/25/17 00:00 IMPRESSION: NORMAL MRA OF THE [place]. Head MRI 10/25/17 00:00 IMPRESSION: The no acute changes. Tiny lacunar infarct is identified in the region of the basal ganglia on the left and in the left cerebellar hemisphere. No other significant intracranial abnormalities were identified. Other findings as noted above EVIDENCE OF ACUTE STROKE: NO. Neck MRA 10/25/17 00:00 IMPRESSION: NORMAL MRA OF THE [place] WITH AND WITHOUT CONTRAST. Qualifiers - * P[place]INT BEING DISCHARGED WITH ANY OF THE FOLLOWING DIAGNOSIS?: No
== END 2017-10-26 13:55 | disposition home or self-care (01) ==
LOC: ER 20:58 → INTOOBSV 21:50 → EH 21:50 → 3S 23:44
PROVIDERS: ADMIT Internal Medicine Geriatric Medicine; ATTEND Internal Medicine Geriatric Medicine
DX: G45.9 Transient cerebral ischemic attack, unspecified (principal); E78.5 Hyperlipidemia, unspecified; I10 Essential (primary) hypertension; E11.9 Type 2 diabetes mellitus without complications; I25.10 Atherosclerotic heart disease of native coronary artery without angina pectoris; K52.9 Noninfective gastroenteritis and colitis, unspecified; R05 Cough; I08.1 Rheumatic disorders of both mitral and tricuspid valves; Z79.899 Other long term (current) drug therapy; Z79.84 Long term (current) use of oral hypoglycemic drugs; Z79.82 Long term (current) use of aspirin; Z79.02 Long term (current) use of antithrombotics/antiplatelets; Z95.1 Presence of aortocoronary bypass graft; Z85.46 Personal history of malignant neoplasm of prostate; Z92.3 Personal history of irradiation; Z90.79 Acquired absence of other genital organ(s); Z87.891 Personal history of nicotine dependence; Z80.42 Family history of malignant neoplasm of prostate
CPT/HCPCS: 93005; 99285; 36415 ×3; 82553; 82962 ×3; 82550; 85025; 85027; 85610; 85730; 80048 ×2; 80053; 81001; 84484; 83036; 80061; 93306; 70551; 70544; 70549; 71045; 70450; 93010; 97110; 97163; G0378 ×4; A9576; A9270 ×12; J1644 ×2; J3490 ×2; G8978; G8979; J1815